=== PATIENT | male | born 1965 | race Two or more races ===

== ENCOUNTER 2023-01-28 01:39 | Emergency (ER) | payer OTHER ==
[~2023-01-28] VITALS: Ht 182.9 cm; Wt 94.0 kg
[2023-01-28 02:02] LABS: BASOPHILS 0.3 % (0-2); EOSINOPHILS 0.9 % (0-6); HEMATOCRIT 42.2 % (35.0-50.0); HEMOGLOBIN 14.4 g/dL (12.0-18.0); LYMPHOCYTES 34.4 % (24-44); MCHC 34.2 g/dl (30-36); MCV 96.6 fl (81-99); MONOCYTES 12.9 % (0-12); NEUTROPHILS 51.5 % (39-80); PLATELET COUNT 192 K/uL (140-440); RBC 4.37 M/ul (4.3-5.7)
[2023-01-28 02:13] LABS: INR 1.08 (0.80-1.30); PROTIME 13.6 Sec (11.2-14.2)
[2023-01-28 02:25] LABS: ALBUMIN 3.9 g/dL (3.4-5.0); ALBUMIN/GLOBULIN RATIO 1.08 (1.1-2.4); ANION GAP 11.9 (7-21); BILIRUBIN, TOTAL 0.3 ng/dL (0.2-1.0); BUN/CREATININE RATIO 17.04 (6.0-28.6); CALCIUM 8.8 mg/dL (8.5-10.1); CREATININE, SERUM 0.88 mg/dL (0.70-1.30); MAGNESIUM 2.1 mg/dL (1.8-2.4); POTASSIUM 3.9 mmol/L (3.5-5.1); PROTEIN, TOTAL 7.5 g/dL (6.4-8.2)
[2023-01-28] MEDS ORDERED: GENVOYA TABLET1 EACH PO (02:48)
[2023-01-28] MEDS ORDERED: LISINOPRIL40 MG PO (02:48)
[2023-01-28] MEDS ORDERED: PRAVASTATIN SOD80 MG PO (02:49)
[2023-01-28] MEDS ORDERED: GABAPENTIN600 MG PO (02:49)
[2023-01-28] MEDS ORDERED: DOCUSATE SODIU250 MG PO (02:50)
[2023-01-28] MEDS ORDERED: K-TAB ER20 MEQ PO (02:50)
[2023-01-28] MEDS ORDERED: NIGHTTIME SLEEP25 M2 PO (02:51)
[2023-01-28] MEDS ORDERED: FAMOTIDINE40 MG PO (02:52)
[2023-01-28 03:05] LABS: INFLUENZA B NAA NEGATIVE (NEGATIVE); RESPIRATORY SYNCYTIAL VIR NAA NEGATIVE (NEGATIVE)
[2023-01-28 03:43] VITALS: BP 126/80
--- NOTE | 2023-01-28 15:22 | EKG ---
[facility] [address] [facility] [place], [place] [address] Signed Normal sinus rhythm Normal ECG No previous ECGs available Confirmed by TRES DAVE MD ([id number]) on 01/28/2023 3:22:17 PM Electronically Signed By: TRES DAVE 01/28/23 1522 PATIENT NAME: SONJA MANSFIELD Electrocardiogram DATE OF : 63 PHYSICIAN: TRES DAVE REPORT #: [id number] REPORT IS CONFIDENTIAL AND NOT TO BE RELEASED WITHOUT AUTHORIZATION
== END 2023-01-28 03:45 | disposition home or self-care (01) ==
LOC: ED 01:39
PROVIDERS: Family Medicine
DX: R07.89 Other chest pain (principal); I10 Essential (primary) hypertension; Z11.52 Encounter for screening for COVID-19; Z88.8 Allergy status to other drugs, medicaments and biological substances; Z79.899 Other long term (current) drug therapy; Z20.822 Contact with and (suspected) exposure to COVID-19
CPT/HCPCS: 36415; 70360; 71045; 80053; 83735; 83880; 84484; 85025; 85610; 87502; 93005; 93010; 99285-25; C9803; U0002

== ENCOUNTER 2023-10-11 17:18 | Emergency (ER) | payer OTHER ==
[~2023-10-11] VITALS: Ht 172.7 cm; Wt 96.1 kg
[~2023-10-11 17:18] MED LIST: DOCUSATE SODIU250 MG PO; ESCITALOPRAM OX10 MG PO; FAMOTIDINE40 MG PO; GABAPENTIN600 MG PO; GENVOYA TABLET1 EACH PO; K-TAB ER20 MEQ PO; LISINOPRIL40 MG PO; NIGHTTIME SLEEP25 M2 PO; OMEPRAZOLE20 MG PO; PRAVASTATIN SOD80 MG PO; PRENATAL VITAM1 EACH PO; VITAMIN D31 ML PO
[2023-10-11 18:30] LABS: BILIRUBIN, URINE NEGATIVE (negative); BLOOD/HGB, URINE NEGATIVE (Negative); KETONE, URINE NEGATIVE (Negative); LEUK ESTERASE, URINE NEGATIVE (negative); NITRITE, URINE NEGATIVE (negative); PH, URINE 6.5 (5-7)
[2023-10-11 18:38] LABS: RED BLOOD CELLS, URINE 0-1 /hpf (0-5); WHITE BLOOD CELLS, URINE 0-1 /HPF (0-5)
[2023-10-11 18:39] LABS: BACTERIA, URINE NONE SEEN /hpf (negative); CASTS, URINE NONE SEEN \\lpf; COLLECTION TYPE, URINE CLEAN CATCH; CRYSTALS, URINE NONE SEEN (0-1+); EPITHELIAL CELLS, URINE NONE SEEN /lpf (0-1+); REFLEX CULTURE, URINE No (No)
[2023-10-11] MEDS ORDERED: KETOROLAC TROMETHAMINE 30 MG/ML VIAL IV ONE (20:15)
[2023-10-11 20:37] LABS: BASOPHILS 0.5 % (0-2); EOSINOPHILS 1.2 % (0-6); HEMATOCRIT 43.2 % (35.0-50.0); HEMOGLOBIN 14.9 g/dL (12.0-18.0); LYMPHOCYTES 39.4 % (24-44); MCH 33.5 (27-36); MCHC 34.5 g/dl (30-36); MCV 97.1 fl (81-99); MONOCYTES 12.2 % (0-12); NEUTROPHILS 46.7 % (39-80); PLATELET COUNT 170 K/uL (140-440); RBC 4.46 M/ul (4.3-5.7)
[2023-10-11 20:50] LABS: ALBUMIN 3.8 g/dL (3.4-5.0); ALBUMIN/GLOBULIN RATIO 1.03 (1.1-2.4); ANION GAP 12.1 (7-21); BILIRUBIN, TOTAL 0.4 ng/dL (0.2-1.0); BUN/CREATININE RATIO 14.63 (6.0-28.6); CALCIUM 8.9 mg/dL (8.5-10.1); CREATININE, SERUM 0.82 mg/dL (0.70-1.30); POTASSIUM 4.1 mmol/L (3.5-5.1); PROTEIN, TOTAL 7.5 g/dL (6.4-8.2)
[2023-10-11 23:07] VITALS: BP 136/89
== END 2023-10-11 23:08 | disposition home or self-care (01) ==
LOC: ED 17:18
PROVIDERS: Emergency Medicine; Internal Medicine
DX: S39.011A Strain of muscle, fascia and tendon of abdomen, initial encounter (principal); X58.XXXA Exposure to other specified factors, initial encounter; I10 Essential (primary) hypertension; Z88.8 Allergy status to other drugs, medicaments and biological substances; Z79.899 Other long term (current) drug therapy
CPT/HCPCS: 36415; 73502; 74177; 76870; 80053; 81001; 85025; 85379; 99284-25; J1885; Q9967

== ENCOUNTER 2024-06-26 11:16 | Inpatient (IN) | payer OTHER ==
[~2024-06-26] VITALS: Ht 172.7 cm; Wt 93.5 kg
[~2024-06-26 11:16] MED LIST changes: +BENADRYL ALLERG50 MG PO; -K-TAB ER20 MEQ PO; +KLOR-CON 1010 MEQ PO; -NIGHTTIME SLEEP25 M2 PO; -VITAMIN D31 ML PO; +VITAMIN D325 MC4 PO
[2024-06-26] MEDS ORDERED: BACTRIM DS TAB1 EACH PO (11:35)
[2024-06-26] MEDS ORDERED: CEFTRIAXONE SODIUM 2 GM in SODIUM CHLORIDE 0.9% 100 ML IV ONE (11:45)
[2024-06-26] MEDS ORDERED: SODIUM CHLORIDE 0.9% 1,000 ML IV ONE ×3 (11:45→15:00)
[2024-06-26 11:57] LABS: HEMATOCRIT 39.1 % (35.0-50.0); HEMOGLOBIN 13.6 g/dL (12.0-18.0); MCH 32.9 (27-36); MCHC 34.7 g/dl (30-36); MCV 94.9 fl (81-99); PLATELET COUNT 279 K/uL (140-440); RBC 4.12 M/ul (4.3-5.7); RDW 12.8 (10.5-15.0)
[2024-06-26 12:02] LABS: BILIRUBIN, URINE NEGATIVE (negative); BLOOD/HGB, URINE MODERATE (Negative); KETONE, URINE NEGATIVE (Negative); LEUK ESTERASE, URINE TRACE (negative); NITRITE, URINE NEGATIVE (negative)
[2024-06-26 12:10] LABS: LYMPHOCYTES, MANUAL DIFF 8; MONOCYTES, MANUAL DIFF 8; NEUTROPHILS, MANUAL DIFF 84
[2024-06-26 12:13] LABS: EPITHELIAL CELLS, URINE 0 /lpf (0-1+); WHITE BLOOD CELLS, URINE 21-40 /HPF (0-5)
[2024-06-26 12:14] LABS: BACTERIA, URINE RARE /hpf (negative); CASTS, URINE NONE SEEN \\lpf; COLLECTION TYPE, URINE CLEAN CATCH; CRYSTALS, URINE NONE SEEN (0-1+); REFLEX CULTURE, URINE Yes (No)
[2024-06-26] MEDS ORDERED: ACETAMINOPHEN 500 MG TAB PO ONE (12:15)
[2024-06-26 12:25] LABS: ALBUMIN/GLOBULIN RATIO 0.59 (1.1-2.4); ANION GAP 13.6 (7-21); BILIRUBIN, TOTAL 0.9 mg/dL (0.2-1.0); BUN/CREATININE RATIO 9.17 (6.0-28.6); CALCIUM 8.9 mg/dL (8.5-10.1); CREATININE, SERUM 1.09 mg/dL (0.70-1.30); POTASSIUM 3.6 mmol/L (3.5-5.1); PROTEIN, TOTAL 8.1 g/dL (6.4-8.2)
[2024-06-26 14:20] LABS: LACTIC ACID, BLOOD 0.7 mmol/L (0.4-2.0)
[2024-06-26] MEDS ORDERED: ondansetron HCL 4 MG/2 ML VIAL IV PRN (15:00)
[2024-06-26] MEDS ORDERED: ACETAMINOPHEN 325 MG TAB PO PRN (15:00)
[2024-06-26 15:34] VITALS: BP 133/83
[2024-06-26 18:09] VITALS: BP 133/83
[2024-06-26] MEDS ORDERED: CORTISONE60 GM TOP (18:17)
[2024-06-26] MEDS ORDERED: VOLTAREN ARTHRI20 GM TOP (18:18)
[2024-06-26 18:31] VITALS: BP 141/79
[2024-06-26] MEDS ORDERED: IBUPROFEN 400 MG TAB PO PRN (19:15)
[2024-06-26 20:26] VITALS: BP 133/58
[2024-06-26] MEDS ORDERED: GABAPENTIN 300 MG CAP PO SCH (21:00)
[2024-06-27] VITALS (12 sets, daily range): BP systolic 113–150; BP diastolic 68–90
[2024-06-27 05:25] LABS: BASOPHILS 0.1 % (0-2); EOSINOPHILS 0.4 % (0-6); HEMATOCRIT 33.1 % (35.0-50.0); HEMOGLOBIN 11.6 g/dL (12.0-18.0); LYMPHOCYTES 6.9 % (24-44); MCV 94.3 fl (81-99); MONOCYTES 10.2 % (0-12); NEUTROPHILS 82.4 % (39-80); PLATELET COUNT 240 K/uL (140-440); RBC 3.51 M/ul (4.3-5.7); RDW 12.7 (10.5-15.0)
[2024-06-27 05:37] LABS: ANION GAP 12.6 (7-21); BUN/CREATININE RATIO 10.58 (6.0-28.6); CALCIUM 8.4 mg/dL (8.5-10.1); CREATININE, SERUM 0.85 mg/dL (0.70-1.30); MAGNESIUM 2.1 mg/dL (1.8-2.4); POTASSIUM 3.6 mmol/L (3.5-5.1)
[2024-06-27] MEDS ORDERED: CEFTRIAXONE SODIUM 1 GM in SODIUM CHLORIDE 0.9% 100 ML IV SCH (09:00)
[2024-06-27] MEDS ORDERED: PANTOPRAZOLE SODIUM 40 MG TABEC PO SCH (09:00)
[2024-06-27] MEDS ORDERED: ENOXAPARIN SODIUM 40 MG/0.4 ML SYR SUB-Q SCH (09:00)
[2024-06-27] MEDS ORDERED: FAMOTIDINE 20 MG TAB PO SCH (09:00)
[2024-06-27] MEDS ORDERED: LACTATED RINGER'S 1,000 ML IV ONE (11:00)
[2024-06-27] MEDS ORDERED: PHARMACY RENAL DOSE ADJUSTMENT 1 DOSE MISC PO SCH (12:00)
[2024-06-27] MEDS ORDERED: CALCIUM CARBONATE 500 MG CHEW PO PRN (18:30)
[2024-06-28] VITALS (10 sets, daily range): BP systolic 116–145; BP diastolic 77–95
[2024-06-28 05:36] LABS: BASOPHILS 0.2 % (0-2); EOSINOPHILS 0.5 % (0-6); HEMATOCRIT 37.3 % (35.0-50.0); HEMOGLOBIN 13.1 g/dL (12.0-18.0); LYMPHOCYTES 15.6 % (24-44); MCV 94.2 fl (81-99); MONOCYTES 11.1 % (0-12); NEUTROPHILS 72.6 % (39-80); PLATELET COUNT 313 K/uL (140-440); RBC 3.96 M/ul (4.3-5.7); RDW 12.7 (10.5-15.0)
[2024-06-28 05:46] LABS: ANION GAP 8.4 (7-21); CALCIUM 9.1 mg/dL (8.5-10.1); POTASSIUM 3.4 mmol/L (3.5-5.1)
[2024-06-28] MEDS ORDERED: POTASSIUM CHLORIDE 10 MEQ TABCR PO ONE (09:00)
[2024-06-29 05:20] LABS: BASOPHILS 0.3 % (0-2); EOSINOPHILS 0.8 % (0-6); HEMATOCRIT 37.6 % (35.0-50.0); HEMOGLOBIN 13.3 g/dL (12.0-18.0); LYMPHOCYTES 15.3 % (24-44); MCH 33.1 (27-36); MCHC 35.4 g/dl (30-36); MCV 93.5 fl (81-99); MONOCYTES 11.6 % (0-12); PLATELET COUNT 336 K/uL (140-440); RBC 4.02 M/ul (4.3-5.7); RDW 12.6 (10.5-15.0)
[2024-06-29 05:29] LABS: ANION GAP 11.8 (7-21); BUN/CREATININE RATIO 15.73 (6.0-28.6); CALCIUM 9.2 mg/dL (8.5-10.1); CREATININE, SERUM 0.89 mg/dL (0.70-1.30); MAGNESIUM 2.2 mg/dL (1.8-2.4); POTASSIUM 3.8 mmol/L (3.5-5.1)
[2024-06-29 05:45] VITALS: BP 138/74
[2024-06-29 10:53] VITALS: BP 125/83
[2024-06-29] MEDS ORDERED: CEFDINIR300 MG PO (11:02)
[2024-06-29 11:03] VITALS: BP 125/83
[2024-06-29 12:30] VITALS: BP 135/86
[2024-06-29 12:31] VITALS: BP 135/86
== END 2024-06-29 12:40 | disposition home or self-care (01) | DRG 872 ==
LOC: ED 11:16 → MS 14:35
PROVIDERS: Emergency Medicine; ADMIT Student in an Organized Health Care Education/Training Program; ATTEND Student in an Organized Health Care Education/Training Program
DX: A41.51 Sepsis due to Escherichia coli [E. coli] (principal); N12 Tubulo-interstitial nephritis, not specified as acute or chronic; N39.0 Urinary tract infection, site not specified; Z16.29 Resistance to other single specified antibiotic; I10 Essential (primary) hypertension; E78.5 Hyperlipidemia, unspecified; K21.9 Gastro-esophageal reflux disease without esophagitis; Z21 Asymptomatic human immunodeficiency virus [HIV] infection status; Z98.890 Other specified postprocedural states; Z88.8 Allergy status to other drugs, medicaments and biological substances; Z79.811 Long term (current) use of aromatase inhibitors; Z79.899 Other long term (current) drug therapy
CPT/HCPCS: 36415; 74177; 80048; 80053; 81001; 83605; 83735; 85025; 87088; A9270; J0696; J1650; J7030; J7121; Q9967